=== PATIENT | female | born 2000 | race African-American/Black ===

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

== ENCOUNTER 2020-03-01 20:05 | Observation (INO) | payer OTHER, SELFPAY ==
[2020-03-01] VITALS (10 sets, daily range): BP systolic 95–152; BP diastolic 57–100; PULSE 115–123; RESP 15–34; TEMP 36.8; O2SAT 97–100; BMI 48.5
--- NOTE | 2020-03-01 20:13 | ED.OVERDOSE ---
HPI - Overdose General Chief Complaint: Overdose Stated Complaint: OD took 20 20mg lisinopril as suicide attempt Time Seen by Provider: 03/01/20 20:06 History of Present Illness HPI Narrative: She got into an argument with her mother and took 20 of her mother's 20 mg lisinopril tablets. She reportedly told her that she wanted to . She has done this before, not recently. Her brother had an attempted overdose last week and her mother thinks that she is imitating him. She has a h/o TBI and Autism. History limited by intellectual disability. Related Data Home Medications Medication Instructions Recorded Confirmed divalproex [Depakote] 1,500 mg PO BID 08/22/19 03/01/20 haloperidol 10 mg PO BID 08/22/19 03/01/20 hydroxyzine HCl 25 mg PO TID 08/22/19 03/01/20 levothyroxine 50 mcg PO DAILY 08/22/19 03/01/20 lithium carbonate 300 mg PO BID 08/22/19 03/01/20 medroxyprogesterone [Depo-Provera] 150 mg IM [id number] 08/22/19 03/01/20 metformin 1,000 mg PO BID 08/22/19 03/01/20 insulin glargine [Lantus Solostar 15 unit SUBCUT DAILY 03/01/20 03/01/20 U-100 Insulin] Allergies Allergy/AdvReac Type Severity Reaction Status Date / Time No Known Allergies Allergy Verified 03/01/20 20:12 Review of Systems Review of Systems: All systems reviewed & are unremarkable except as noted in HPI and below ENT: Denies dizziness Cardiovascular: Cardiovascular: Denies chest pain Respiratory: Respiratory: Denies dyspnea Gastrointestinal: Gastrointestinal: Denies abdominal pain and Denies nausea Musculoskeletal: Musculoskeletal: Denies back pain Neurologic: Denies weakness PMFSH Past Medical History Medical History Autism spectrum disorder Depression Diabetes mellitus per our records last hemoglobin A1c 10.02 March 2019 Morbid obesity Previous known suicide attempt Traumatic brain injury Surgical History Surgical History History of ovarian cystectomy Family History Family History Other Adopted Social History Social History Smoking packs per day: 0.5 Smoking cigarettes per day: 10.0 Years smoked: 3 Smoking pack-years: 1.50 Smoking status: Current every day smoker Tobacco type: cigarettes Alcohol intake: never Substance use: current Substance use type: marijuana Gender identity (if verbalized by the patient): Female Spiritual care concerns: No Exam Const: General: no acute distress and alert Nutritional Appearance: obese morbidly obese HENMT: Head: normal to inspection Eyes: Pupils: Equal, round and reactive pupils present Resp: Effort & Inspection: tachypneic Auscultation: clear to auscultation bilaterally Cardio: Rate: tachycardic Rhythm: regular rhythm GI: GI Palp: Yes Soft to palpation and No Tenderness to palpation present (GI) Skin: General skin exam: normal color Neuro: General: moves all extremities, no focal motor deficits and CN's II-XI intact bilaterally Speech: normal speech Motor exam (neuro): 5/5 motor strength present throughout Extrem: General: normal to inspection Course Vital Signs Vital signs: Vital Signs Temperature 36.8 C 03/01/20 20:03 Pulse Rate 122 H 03/01/20 20:03 Respiratory Rate 30 H 03/01/20 20:03 Blood Pressure 152/100 H 03/01/20 20:03 Pulse Oximetry 100 03/01/20 20:03 Temperature 36.8 C 03/02/20 00:00 Pulse Rate 109 H 03/02/20 02:00 Respiratory Rate 16 03/02/20 02:00 Blood Pressure 114/45 L 03/02/20 02:00 Pulse Oximetry 100 03/02/20 02:00 MDM - Overdose MDM Narrative Medical decision making narrative: She will need a period of observation before she can be medically cleared, especially given her persistently elevated heart rate and hyperglycemia. Differential Diagnosis Differe
--- NOTE | 2020-03-01 20:23 | ECG_ITS ---
Measurements Intervals [place] Rate: 62 P: 50 MS: 155 QRS: 77 QRSD: 93 T: 39 QT: 343 QTc: 348 Interpretive Statements SINUS TACHYCARDIA NON-CONDUCTED ATRIAL PREMATURE COMPLEXES NONSPECIFIC T-WAVE ABNORMALITY- INFERIOR LEADS BASELINE ARTIFACT- V1-V3 ABNORMAL ECG Electronically Signed On 03-02-2020 7:32:41 CDT by Yovany Freitas D.O.
[2020-03-01 20:39] LABS: Basophils Percent Auto 0.6 % (0.2-1.2); Eosinophils Absolute Auto 0.1 K/mm3 (0-0.3); Eosinophils Percent Auto 0.9 % (0-4.4); Hematocrit 41.2 % (37.0-47.0); Hemoglobin 13.9 g/dL (12.0-15.0); Immature Granulocyte Absolute 0.13 K/mm3 (0.00-0.031); Immature Granulocyte Percent A 1.9 % (0-0.5); Lymphocytes Absolute Auto 3.23 K/mm3 (0.9-3.2); Lymphocytes Percent Auto 46.5 % (18.3-44.2); Mean Corpuscular HGB Conc 33.7 g/dl (32-36); Mean Corpuscular Volume 88.8 fl (80-100); Mean Platelet Volume 10.1 fl (7.4-10.4); Monocytes Absolute Auto 0.5 K/mm3 (0.1-0.6); Monocytes Percent Auto 7.3 % (2.6-8.5); Neutrophils Percent Auto 42.8 % (45.5-73.1); Platelet Count Result 182 k/mm3 (150-375); Red Blood Count 4.64 M/mm3 (4.2-5.4); Red Cell Distribution Width 12.3 % (11.5-14.5)
[2020-03-01 20:42] LABS: Add Urine Microscopic? YES; Appearance Urine Clear (Clear); Bilirubin Urine Negative (Negative); Blood Urine Negative (Negative); Color Urine Straw (Yellow); Glucose Urine UA 3+ mg/dL (Negative); Ketones Urine Trace mg/dL (Negative); Leukocyte Esterase Ur Negative LEU/UL (Negative); Nitrate Urine Negative (Negative); Protein Urine Negative (Negative); Specific Grav Ur 1.014 (1.001-1.035); Squamous Epithelial Cell Urine Rare /hpf (Few); Urobilinogen Urine Negative mg/dL (<2.0); WBC Urine 0-3 /hpf
--- NOTE | 2020-03-01 20:47 | PC.NURSE ---
Spoke to [place] at poison control. Per [place], Lisinopril peaks in 6-7 hours and to monitor blood pressure.
[2020-03-01 20:52] LABS: Alanine Aminotransferase 13 U/L (4-35); Albumin Level 4.3 g/dL (3.7-5.6); Alkaline Phosphatase 74 U/L (45-116); Anion Gap 9 mmol/L (8-16); Aspartate Amino Transferase 18 U/L (14-36); Bilirubin,Total 0.2 mg/dL (0.2-1.3); Blood Urea Nitrogen 9 mg/dL (8-21); Calcium 9.6 mg/dL (8.9-10.7); Carbon Dioxide 24 mmol/L (22-30); Chloride 101 mmol/L (98-107); Estimated CRCL calculation 149 ml/min; Estimated Glomerular Filt Rate > 60; Glucose 303 mg/dL (65-105); Potassium 4.3 mmol/L (3.4-5.0); Sodium 134 mmol/L (134-143)
[2020-03-01 20:53] LABS: Acetaminophen < 10 ug/mL (10-30); Ethanol < 10 mg/dL (<10); Salicylate < 1.0 mg/dL (2-20)
[2020-03-01] MEDS: SODIUM CHLORIDE 0.9% IV 1,000 ML 999 ML IV CONT (20:59)
[2020-03-01 21:02] LABS: Amphetamine Screen Urine Negative (Negative); Barbiturate Screen Urine Negative (Negative); Benzodiazepines Screen Urine Negative (Negative); Cannabinoid Screen Urine Positive (Negative); Cocaine Screen Urine Negative (Negative); Methadone Screen Urine Negative (Negative); Opiate Screen Urine Negative (Negative); Phencyclidine Screen Urine Negative (Negative)
--- NOTE | 2020-03-01 22:07 | PC.NURSE ---
EDP Carmela notified of patient's evening medications. Per EDP Carmela, hold medications at this time.
[2020-03-01 22:14] LABS: Glucose Point of Care 224 (65-105)
--- NOTE | 2020-03-01 23:42 | ADMIMU ---
This patient, Abimbola Abreu, was admitted to IMU status, and placed in Intensive Care Unit-6. Patient/family oriented to hospital policies and general routines including ID bracelet, bed and alarms, visiting hours, pain management, procedures, bathroom and other care routines, personal items, smoking policy, room service/diet, and visiting hours. Valuables list has been completed. Information on how to activate the Rapid Response Team has been discussed. Patient/Family are encouraged to report perceived risks to care and to ask questions if they do not understand what they are told or what they should do.
[2020-03-02] VITALS (12 sets, daily range): BP systolic 99–126; BP diastolic 45–88; PULSE 84–116; RESP 16–28; TEMP 36.3–36.8; O2SAT 97–100
[2020-03-02] MEDS: SODIUM CHLORIDE 0.9% IV 1,000 ML 125 ML IV CONT ×2 (00:05→08:55)
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
[2020-03-02] MEDS: LEVOTHYROXINE SODIUM 50 MCG TABLET PO (06:07)
[2020-03-02 07:33] LABS: Glucose Point of Care 216 (65-105)
[2020-03-02 08:10] LABS: Anion Gap 7 mmol/L (8-16); Blood Urea Nitrogen 11 mg/dL (8-21); Calcium 9.2 mg/dL (8.9-10.7); Carbon Dioxide 23 mmol/L (22-30); Chloride 104 mmol/L (98-107); Estimated CRCL calculation 179 ml/min; Estimated Glomerular Filt Rate > 60; Glucose 226 mg/dL (65-105); Potassium 4.2 mmol/L (3.4-5.0); Sodium 134 mmol/L (134-143)
[2020-03-02 08:11] LABS: Hemoglobin A1C 7.8 % (<5.7)
[2020-03-02] MEDS: hydrOXYzine HCL 25 MG TABLET PO ×3 (08:51→19:04)
[2020-03-02] MEDS: DIVALPROEX SODIUM 250 MG TABEC 1500 MG PO ×2 (08:51→19:04)
[2020-03-02] MEDS: metFORMIN HCL 500 MG TABLET 1000 MG PO ×2 (08:51→19:04)
[2020-03-02] MEDS: HALOPERIDOL 5 MG TABLET 10 MG PO ×2 (08:51→19:04)
[2020-03-02] MEDS: LITHIUM CARBONATE 300 MG CAPSULE PO ×2 (08:51→19:04)
[2020-03-02] MEDS: INSULIN GLARGINE (*BKC) 100 UNITS/ML 15 UNITS SUB-Q (08:53)
[2020-03-02] MEDS: INSULIN ASPART (*BKC) 100 UNITS/ML SUB-Q ×3 (08:54→19:05)
[2020-03-02] MEDS: SODIUM CHLORIDE 0.9% IV 1,000 ML 999 ML IV CONT (08:55)
--- NOTE | 2020-03-02 09:28 | WPDCNINT ---
Assessment and Plan Assessment and plan (1) Intentional drug overdose: Qualifiers: Encounter type: initial encounter Qualified Code(s): T50.902A - Poisoning by unspecified drugs, medicaments and biological substances, intentional self-harm, initial encounter Code(s): T50.902A - Poisoning by unspecified drugs, medicaments and biological substances, intentional self-harm, initial encounter Status: Acute Assessment and Plan: patient overdosed on lisinopril 20 mg x 20 pills. - Blood pressures have been stable throughout the night, patient has been asymptomatic otherwise - will give additional IV fluid bolus - will monitor blood pressures - will be medically stable today for care coordination and crisis management to evaluate the patient. (2) Diabetes mellitus with hyperglycemia: Code(s): E11.65 - Type 2 diabetes mellitus with hyperglycemia Status: Acute Assessment and Plan: Continue Lantus along with Accu-Cheks and sliding scale insulin - hemoglobin A1c 7.8 this admission (3) Depression: Code(s): F32.9 - Major depressive disorder, single episode, unspecified Status: Acute Assessment and Plan: patient with history of depression, multiple psych medications at home. Will continue - care coordination to evaluate the patient (4) Suicide attempt by drug overdose: Code(s): T50.902A - Poisoning by unspecified drugs, medicaments and biological substances, intentional self-harm, initial encounter Status: Acute Assessment and Plan: patient with suicide attempt with lisinopril - has a history of depression - will need placement to a psych facility - care coordination and crisis management evaluate the patient Additional Plan discussed with patient and updated with her condition and plan of care. She was wondering when she can go home. I did explain to her that care coordination and crisis management will evaluate her code status: Full code critical care time spent: 37 minutes Due to a high probability of clinically significant, life threatening deterioration, the patient required my highest level of preparedness to intervene emergently and I personally spent this critical care time directly and personally managing the patient. This critical care time included obtaining a history; examining the patient; pulse oximetry; ordering and review of studies; arranging urgent treatment with development of a management plan; evaluation of patient's response to treatment; frequent reassessment; and discussions with other providers. It was exclusive of separately billable procedures and treating other patients and teaching time. Please see Assessment and Plan section and the rest of the note for further information on patient assessment and treatment Post Adoption Coordinator Consult Note Consult date: 03/02/20 Time Seen: 07:09 Reason for consult: LISINOPRIL OVERDOSE HPI: Abimbola Abreu is a 19 year old female with past medical history of autism spectrum disorder, depression, diabetes, obesity, previous known suicide attempt, traumatic brain injury presented the ED after she overdosed on her mother's lisinopril 20 mg x 20 pills . reportedly told her mother that she wanted to . urine drug screen was positive for cannabinoids. patient was given 1 L IV fluid bolus, transferred to the ICU for further management. Patient seen and examined this morning in the ICU, Blood pressures have been stable. Patient denies any chest pain, shortness of breath, abdominal pain, nausea, dizziness. Patient denies any suicidal ideation at this time. Urine output has been adequate, patient is afebrile. Patient denies any alcohol, but continues to smoke half packet a day. She also smokes marijuana daily Review of Systems Review of Systems: All systems reviewed & are unremarkable except as noted in HPI and below PMFSH Past Medical History Medical History (Reviewed 03/02/20 @ 02:17 by Yaa
--- NOTE | 2020-03-02 11:12 | PC.NURSE ---
RN talked with Eleanor from poison control. patient has been medically cleared by poison control.
[2020-03-02 12:15] LABS: Glucose Point of Care 251 (65-105)
[2020-03-02 16:40] LABS: Glucose Point of Care 273 (65-105)
[2020-03-02 17:10] LABS: Beta HCG Quantitative < 2.39 mIU/ML
[2020-03-02 17:17] LABS: Hepatitis B Surface Antigen Negative (Negative)
[2020-03-02 17:23] LABS: HAV RESULT Negative (Negative); Hepatitis B Core IgM Result Negative (Negative)
[2020-03-02 17:27] LABS: HIV 1/2 Ab P24 Ag Result Negative (Negative)
[2020-03-02 17:34] LABS: Hepatitis C Virus Antibody Negative (Negative)
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
[2020-03-02] MEDS: AZITHROMYCIN 250 MG TABLET 1000 MG PO (19:06)
[2020-03-02] MEDS: metroNIDAZOLE 250 MG TABLET 2000 MG PO (19:07)
[2020-03-02] MEDS: ULIPRISTAL ACETATE 30 MG TABLET PO (19:08)
[2020-03-02] MEDS: ONDANSETRON HCL ODT 4 MG TABLET PO (20:58)
[2020-03-02] MEDS: DOXYCYCLINE HYCLATE 100 MG TABLET PO (20:58)
[2020-03-02] MEDS: cefTRIAXone 250 MG VIAL IM (20:59)
[2020-03-02 21:08] LABS: Glucose Point of Care 202 (65-105)
[2020-03-03] MEDS: SODIUM CHLORIDE 0.9% IV 1,000 ML 125 ML IV CONT (02:30)
[2020-03-03] MEDS: LEVOTHYROXINE SODIUM 50 MCG TABLET PO (06:27)
--- NOTE | 2020-03-03 06:43 | PC.NURSE ---
This patient, Abimbola Abreu, was received from [ICU] on 03/03/20 at 0643. Personal belongings list checked and signed. Patient/family oriented to unit policies and routines
[2020-03-03 06:44] VITALS: BP 121/45; PULSE 105; RESP 18; TEMP 36.3; O2SAT 100
--- NOTE | 2020-03-03 07:47 | PC.NURSE ---
This patient, Abimbola Abreu, was transferred to [ 333] on 03/03/20 at 0640. Personal belongings sent with patient. Belongings list checked and signed with receiving [ floor]. Report given to [ Jorge A ALVARADO]. Appropriate documentation sent with patient.
[2020-03-03 08:00] VITALS: PULSE 105; RESP 18; O2SAT 100
[2020-03-03] MEDS: HALOPERIDOL 5 MG TABLET 10 MG PO ×2 (08:08→16:27)
[2020-03-03] MEDS: DIVALPROEX SODIUM 250 MG TABEC 1500 MG PO ×2 (08:10→16:28)
[2020-03-03] MEDS: DOXYCYCLINE HYCLATE 100 MG TABLET PO (08:11)
[2020-03-03] MEDS: metFORMIN HCL 500 MG TABLET 1000 MG PO ×2 (08:11→16:29)
[2020-03-03] MEDS: hydrOXYzine HCL 25 MG TABLET PO ×3 (08:12→16:28)
[2020-03-03] MEDS: LITHIUM CARBONATE 300 MG CAPSULE PO ×2 (08:12→16:28)
[2020-03-03] MEDS: INSULIN GLARGINE (*BKC) 100 UNITS/ML 15 UNITS SUB-Q (08:16)
[2020-03-03 08:23] LABS: Glucose Point of Care 153 (65-105)
[2020-03-03] MEDS: medroxyPROGESTERone ACETATE IM 150 MG/ML SYR IM (09:39)
[2020-03-03 09:51] LABS: Rapid Plasma Reagin Non-Reactive (NonReactive)
[2020-03-03 11:37] LABS: Glucose Point of Care 156 (65-105)
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
[2020-03-03 14:00] VITALS: BP 112/70; PULSE 118; RESP 18; TEMP 37.1; O2SAT 98
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
[2020-03-03 16:31] LABS: Glucose Point of Care 146 (65-105)
[2020-03-03 21:24] LABS: SARS-CoV-2 RNA PCR Negative
== END 2020-03-03 20:41 ==
LOC: ANHED 21:52 → ANHICU 22:45 → ANH3MEDSUR 03-03 14:35 → ANHICU 03-07 13:37
PROVIDERS: Obstetrics & Gynecology; Admitting Provider Internal Medicine; Emergency Provider Emergency Medicine; PCP Family Medicine; Visit Provider Hospitalist
DX: T46.4X2A Poisoning by angiotensin-converting-enzyme inhibitors, intentional self-harm, initial encounter (principal); Z20.828 Contact with and (suspected) exposure to other viral communicable diseases; T76.21XA Adult sexual abuse, suspected, initial encounter; E11.65 Type 2 diabetes mellitus with hyperglycemia; E66.01 Morbid (severe) obesity due to excess calories; F84.0 Autistic disorder; F32.9 Major depressive disorder, single episode, unspecified; F12.90 Cannabis use, unspecified, uncomplicated; F17.210 Nicotine dependence, cigarettes, uncomplicated; Z79.4 Long term (current) use of insulin; Z87.820 Personal history of traumatic brain injury
CPT/HCPCS: 36415; 80048; 80053; 80074; 80307; 81001; 81025; 82948; 83036; 84443; 84702; 85025; 86592; 86703; 87635; 87661; 93005; 96360; 96361; 99285; A9270; C9803; G0378; G0379; G0432; J0696; J1050; J1815; J7030; U0003